=== PATIENT | female | born 1970 | race Caucasian/White ===

== ENCOUNTER 2016-12-04 09:30 | Emergency (ER) | payer BC ==
[2016-12-04] MEDS ORDERED: Ketorolac 30 MG/ML SDV IVPUSH ONE (09:44)
[2016-12-04] MEDS ORDERED: Diazepam 5 MG Tab PO ONE (09:44)
--- NOTE | 2016-12-04 09:46 | EDM.PDOC ---
ED HPI LOWER BACK PAIN/INJURY - General Chief Complaint: Back Pain or Injury Stated Complaint: AMBULANCE Time Seen by Provider: 12/04/16 09:37 Source of Information: Reports: Patient History Limitations: Reports: No limitations - History of Present Illness INITIAL COMMENTS - FREE TEXT/NARRATIVE: History of present illness: [] Patient slipped in the shower hit her low back edge of the bathtub this morning is brought in by ambulance planning of low back pain with spasms radiating down her left hip. She denies any numbness or tingling, urinary or fecal incontinence. Review of systems: As per history of present illness and below otherwise all systems reviewed and negative. Past medical history: As per history of present illness and as reviewed below otherwise noncontributory. Surgical history: As per history of present illness and as reviewed below otherwise noncontributory. Social history: No reported history of drug or alcohol abuse. Family history: As per history of present illness and as reviewed below otherwise noncontributory. Physical exam: General: Well developed, well nourished in NAD HEENT: Atraumatic, normocephalic, pupils reactive, negative for conjunctival pallor or scleral icterus, mucous membranes moist, throat clear, neck supple, nontender, trachea midline. Lungs: Clear to auscultation, breath sounds equal bilaterally, chest nontender. Heart: S1S2, regular, negative for clicks, rubs, or JVD. Abdomen: Soft, nondistended, nontender. Negative for masses or hepatosplenomegaly. Negative for costovertebral tenderness. Pelvis: Stable nontender. Genitourinary: Deferred. Rectal: Deferred. Extremities: Atraumatic, negative for cords or calf pain. Neurovascular unremarkable. Neuro: Awake, alert, oriented. Cranial nerves II through XII unremarkable. Cerebellum unremarkable. Motor and sensory unremarkable throughout. Exam nonfocal. Diagnostics: [] X-rays lumbar spine negative for fracture compared to films and 2010 or unchanged Therapeutics: [] Valium and Toradol given for pain she received Fentanyl and ambulance prior to arrival Impression: [] Low back contusion Plan: [] Flexeril, diclofenac for pain Definitive disposition and diagnosis as appropriate pending reevaluation and review of above. - Related Data Allergies/ADRs: Allergies Allergy/AdvReac Type Severity Reaction Status Date / Time clarithromycin [From Biaxin] Allergy Difficulty Verified 12/04/16 09:38 Breathing morphine Allergy Rash Verified 12/04/16 09:38 Home Meds: Home Meds LORazepam 1 - 2 tab PO BID PRN 01/02/15 [History] Methotrexate Sodium [Methotrexate] 2.5 mg PO WEEKLY 11/06/16 [History] Ziprasidone HCl [Geodon] 20 mg PO BID 11/06/16 [History] lamoTRIgine [Lamictal] 200 mg PO DAILY 11/06/16 [History] traZODone 100 mg PO BEDTIME 11/06/16 [History] Cyclobenzaprine [Flexeril] 10 mg PO BID PRN #16 tablet 12/04/16 [Rx] Diclofenac Sodium [Voltaren] 50 mg PO BIDMEALS PRN #20 tab.ec 12/04/16 [Rx] Past Medical History Cardiovascular History: Reports: None Respiratory History: Reports: None Musculoskeletal History: Reports: Osteoporosis, RA Psychiatric History: Reports: Bipolar - Past Surgical History GI Surgical History: Reports: Appendectomy, Cholecystectomy Female Surgical History: Reports: section, Hysterectomy Social & Family History - Tobacco Use Smoking Status *Q: Never Smoker Second Hand Smoke Exposure: No - Caffeine Use Caffeine Use: Reports: None - Alcohol Use Days Per Week of Alcohol Use: 0 - Recreational Drug Use Recreational Drug Use: No ED ROS GENERAL - Review of Systems Review Of Systems: See Below (See history of present illness) ED EXAM,LOWER BACK PAIN/INJURY - Physical Exam Exam: See Below (see history of present illness) Course - Vital Signs Last Recorded V/S: Last Vital Signs Temp 36.9 C 12/04/16 09:39 Pulse 68 12/04/16 09:39 Resp 16 12/04/16 09:39 BP 119/69 12/04/16 09:39 Pulse Ox 100 12/04/16 09:39 - Orders/Labs/Meds Orders: Active Orders 24 hr Category Date Time Status Lumbar Spine 2 or 3V [CR] Stat Exams 12/04/16 09:45 Taken UA W/O MICROSCOPIC [URIN] Stat Lab 12/04/16 09:45 Uncollected Meds: Medications Discontinued Medications Generic Name Dose Route Start Last Admin Trade Name Freq PRN Reason Stop Dose Admin Diazepam 5 mg 12/04/16 09:44 12/04/16 09:54 Valium. PO 12/04/16 09:45 5 mg ONETIME ONE Administration Ketorolac Tromethamine 30 mg 12/04/16 09:44 12/04/16 09:53 Toradol IVPUSH 12/04/16 09:45 30 mg ONETIME ONE Administration Departure - Departure Time of Disposition: 11:00 Disposition: Home, Self-Care 01 Condition: good Clinical Impression: Lumbar contusion Qualifiers: Encounter type: initial encounter Qualified Code(s): S30.0XXA - Contusion of lower back and pelvis, initial encounter Forms: ED Department Discharge Additional Instructions: The following information is given to patients seen in the emergency department who are being discharged to home. This information is to outline your options for follow-up care. We provide all patients seen in our emergency department with a follow-up referral. The need for follow-up, as well as the timing and circumstances, are variable depending upon the specifics of your emergency department visit. If you don't have a primary care physician on staff, we will provide you with a referral. We always advise you to contact your personal physician following an emergency department visit to inform them of the circumstance of the visit and for follow-up with them and/or the need for any referrals to a consulting specialist. The emergency department will also refer you to a specialist when appropriate. This referral assures that you have the opportunity for follow-up care with a specialist. All of these measure are taken in an effort to provide you with optimal care, which includes your follow-up. Under all circumstances we always encourage you to contact your private physician who remains a resource for coordinating your care. When calling for follow-up care, please make the office aware that this follow-up is from your recent emergency room visit. If for any reason you are refused follow-up, please contact the [facility] Emergency Department at and asked to speak to the emergency department charge nurse. Tramadol, Flexeril for pain [facility] [address] [place] [id number] - My Orders Last 24 Hours: My Active Orders 12/04/16 09:45 Lumbar Spine 2 or 3V [CR] Stat UA W/O MICROSCOPIC [URIN] Stat - Assessment/Plan Last 24 Hours: My Active Orders 12/04/16 09:45 Lumbar Spine 2 or 3V [CR] Stat UA W/O MICROSCOPIC [URIN] Stat
[2016-12-04 11:25] VITALS: BP 132/77
--- NOTE | 2016-12-04 15:59 | CR ---
EXAM DATE: 12/04/16 PATIENT'S AGE: 46 Patient: RAMIRO LARKIN Facility: [place], [place] Site . Site : 1970 Study: XRay Spine Lumbar [id number]/8/2017 10:22:24 AM Ordering Physician: Arnoldo Ross Final Report: Indication: Fell this morning, back and left leg pain. History laminectomy at approximately L4. Technique: Three view lumbar spine. Comparison: 04/23/2010. Findings: Five lumbar-type vertebra are present. Laminectomy changes are present at L4-5. No acute fracture is demonstrated in the lumbar spine. Vertebral body height is maintained. There is an old Schmorl`s node involving the superior vertebral body endplate of T12 which does not appear changed. Disc space narrowing at L4- 5 and L5-S1 is not significantly changed.Mild disc space narrowing at L3-4 is stable. Tiny anterior vertebral body spurs at L5-S1 are stable. There is no subluxation in the lumbar spine.Scoliosis convex towards the right is less conspicuous. Pelvic surgical clips are present. Alignment of sacroiliac joints is normal. Impression: There are no acute bony abnormalities in the lumbar spine. Chronic disc space narrowing is not significantly changed since 04/23/2010. There is no subluxation in the visualized spine. Dictated by Maryuri Nathan MD @ Dec 04 2016 10:28AM (Electronic Signature) Report Signed by Proxy and Original Signed Document filed in the Medical Record. BENNIE
--- NOTE | 2016-12-05 15:39 | CT ---
EXAM DATE: 12/04/16 PATIENT'S AGE: 46 Patient: RAMIRO LARKIN Facility: [place], [place] Site . Site : 1970 Study: CT Head [id number]/8/2017 11:17:49 PM Ordering Physician: Deion Pham Final Report: INDICATIONS: Unresponsive. Question overdose. TECHNIQUE: CT head without contrast. COMPARISON: CT head without contrast November 06, 2016. FINDINGS: Motion. No mass effect or midline shift. No hydrocephalus. No CT evidence of acute hemorrhage or infarction. No abnormal extra-axial fluid collection. Bone windows show no acute abnormality. Paranasal sinuses and orbits as imaged are unremarkable. IMPRESSION: No acute intracranial abnormality. Please note that image quality is degraded by motion. Dictated by Jose Cruz Gonsalez MD @ 12/04/2016 11:26:45 PM Dictated by: Jose Cruz Gonsalez MD @ 12/04/2016 23:27:01 (Electronic Signature) Report Signed by Proxy and Original Signed Document filed in the Medical Record. [facility]
--- NOTE | 2016-12-05 15:40 | CR ---
EXAM DATE: 12/04/16 PATIENT'S AGE: 46 Patient: RAMIRO LARKIN Facility: [place], [place] Site . Site : 1970 Study: XRay Chest [id number]/8/2017 11:21:48 PM Ordering Physician: Deion Pham Final Report: INDICATIONS: Altered mental status. TECHNIQUE: Chest 1 view. COMPARISON: None FINDINGS: Lungs are suboptimally inflated but grossly clear. No evidence of pneumothorax or pleural effusion. Cardiac and mediastinal contours appear within normal limits. Upper abdomen and osseous structures show no acute abnormality. IMPRESSION: Unremarkable low volume chest. Dictated by Jose Cruz Gonsalez MD @ 12/04/2016 11:31:02 PM Dictated by: Jose Cruz Gonsalez MD @ 12/04/2016 23:31:13 (Electronic Signature) Report Signed by Proxy and Original Signed Document filed in the Medical Record. [facility]
== END 2016-12-04 11:15 | disposition home or self-care (01) ==
LOC: MW.ED 09:30
DX: S30.0XXA Contusion of lower back and pelvis, initial encounter (principal); M81.0 Age-related osteoporosis without current pathological fracture; M06.9 Rheumatoid arthritis, unspecified; F31.9 Bipolar disorder, unspecified; Z90.49 Acquired absence of other specified parts of digestive tract; Z90.710 Acquired absence of both cervix and uterus; Z79.899 Other long term (current) drug therapy; Z88.5 Allergy status to narcotic agent; Z88.1 Allergy status to other antibiotic agents; W18.49XA Other slipping, tripping and stumbling without falling, initial encounter
CPT/HCPCS: 70450; 71010; 72100; 81003; 96374; 99284; A9270; J1885

== ENCOUNTER 2016-12-04 22:32 | Observation (INO) | payer BC ==
[2016-12-04] MEDS ORDERED: Naloxone 0.4 MG/ML Syringe IVPUSH ONE (22:37)
--- NOTE | 2016-12-04 22:41 | EDM.PDOC ---
ED HPI GENERAL MEDICAL PROBLEM - General Chief Complaint: Neurological Problem Stated Complaint: SUICIDE Time Seen by Provider: 12/04/16 22:35 - History of Present Illness INITIAL COMMENTS - FREE TEXT/NARRATIVE: HISTORY AND PHYSICAL: History of present illness: This 46-year-old female who presents after being found by her daughter and unresponsive she was seen earlier emergent [facility] for back pain and was discharged on muscle relaxant and pain medication it is reported she had been drinking tonight and was behaving somewhat unusually her daughter police were involved one with paramedics and did find a suicide note. There is no other reported trauma or concern and on arrival patient is awake breeding hemodynamically stable but profoundly somnolent eyes closed moving all extremities and inconsistently following commands Review of systems: As per history of present illness and below otherwise all systems reviewed and negative. Past medical history: As per history of present illness and as reviewed below otherwise noncontributory. Surgical history: As per history of present illness and as reviewed below otherwise noncontributory. Social history: No reported history of drug or alcohol abuse. Family history: As per history of present illness and as reviewed below otherwise noncontributory. Physical exam: HEENT: Atraumatic, normocephalic, pupils reactive, negative for conjunctival pallor or scleral icterus, mucous membranes moist, throat clear, neck supple, nontender, trachea midline. Lungs: Clear to auscultation, breath sounds equal bilaterally, chest nontender. Heart: S1S2, regular, negative for clicks, rubs, or JVD. Abdomen: Soft, nondistended, nontender. Negative for masses or hepatosplenomegaly. Negative for costovertebral tenderness. Pelvis: Stable nontender. Genitourinary: Deferred. Rectal: Deferred. Extremities: Atraumatic, negative for cords or calf pain. Neurovascular unremarkable. Neuro: Patient is moving all extremities she responds to painful stimuli does not follow commands consistently and has limited grossly nonfocal exam Diagnostics: CBC CMP troponin PT INR aspirin level Tylenol level urine drug screen EtOH chest x-ray EKG and CT brain Therapeutics: IV O2 monitor Narcan 0.4 mg IV Impression: #1 suicide attempt with overdose Definitive disposition and diagnosis as appropriate pending reevaluation and review of above. - Related Data Allergies Allergy/AdvReac Type Severity Reaction Status Date / Time clarithromycin [From Biaxin] Allergy Difficulty Verified 12/04/16 09:38 Breathing morphine Allergy Rash Verified 12/04/16 09:38 Home Meds: Home Meds LORazepam 1 - 2 tab PO BID PRN 01/02/15 [History] Methotrexate Sodium [Methotrexate] 2.5 mg PO WEEKLY 11/06/16 [History] Ziprasidone HCl [Geodon] 20 mg PO BID 11/06/16 [History] lamoTRIgine [Lamictal] 200 mg PO DAILY 11/06/16 [History] traZODone 100 mg PO BEDTIME 11/06/16 [History] Cyclobenzaprine [Flexeril] 10 mg PO BID PRN #16 tablet 12/04/16 [Rx] Diclofenac Sodium [Voltaren] 50 mg PO BIDMEALS PRN #20 tab.ec 12/04/16 [Rx] Past Medical History HEENT History: Reports: Sinusitis Cardiovascular History: Reports: None Respiratory History: Reports: None Gastrointestinal History: Reports: None Genitourinary History: Reports: None [employer] History: Reports: None Musculoskeletal History: Reports: Osteoporosis, RA Neurological History: Reports: None Psychiatric History: Reports: Bipolar Endocrine/Metabolic History: Reports: Obesity/BMI 30+, Osteopenia Hematologic History: Reports: None Immunologic History: Reports: None Oncologic (Cancer) History: Reports: None Dermatologic History: Reports: None - Infectious Disease History Infectious Disease History: Reports: Chicken pox - Past Surgical History GI Surgical History: Reports: Appendectomy, Cholecystectomy Female Surgical History: Reports: section, Hysterectomy Social & Family History - Family History Family Medical History: Noncontributory - Tobacco Use Smoking Status *Q: Never Smoker Years of Tobacco use: 15 Second Hand Smoke Exposure: No - Caffeine Use Caffeine Use: Reports: None - Alcohol Use Days Per Week of Alcohol Use: 0 - Recreational Drug Use Recreational Drug Use: No ED ROS GENERAL - Review of Systems Review Of Systems: ROS reveals no pertinent complaints other than HPI. ED EXAM, GENERAL - Physical Exam Exam: See Below (See dictation) Course - Vital Signs Last Recorded V/S: Last Vital Signs Temp 36.6 C 12/04/16 22:35 Pulse 121 H 12/04/16 22:35 Resp 16 12/04/16 22:35 BP 141/98 H 12/04/16 22:35 Pulse Ox 93 L 12/04/16 22:35 - Orders/Labs/Meds Orders: Active Orders 24 hr Category Date Time Status EKG 12 Lead [EKG Documentation Completion] [RC] STAT Care 12/04/16 22:38 Active Chest 1V Frontal [CR] Stat Exams 12/04/16 22:39 Taken Head wo Cont [CT] Stat Exams 12/04/16 22:41 Taken Labs: Laboratory Tests 12/04/16 12/04/16 12/04/16 Range/Units 22:40 22:40 22:40 WBC 5.86 (4.0-11.0) K/uL RBC 4.72 (4.30-5.90) M/uL Hgb 14.4 (12.0-16.0) g/dL Hct 41.0 (36.0-46.0) % MCV 86.9 (80.0-98.0) fL MCH 30.5 (27.0-32.0) pg MCHC 35.1 (31.0-37.0) g/dL RDW Std Deviation 42.8 (28.0-62.0) fl RDW Coeff of Abdiel 14 (11.0-15.0) % Plt Count 271 (150-400) K/uL MPV 9.20 (7.40-12.00) fL Neut % (Auto) 66.8 (48.0-80.0) % Lymph % (Auto) 27.5 (16.0-40.0) % Duchesne % (Auto) 3.9 (0.0-15.0) % Eos % (Auto) 1.5 (0.0-7.0) % Baso % (Auto) 0.3 (0.0-1.5) % Neut # 3.9 (1.4-5.7) K/uL Lymph # 1.6 (0.6-2.4) K/uL Duchesne # 0.2 (0.0-0.8) K/uL Eos # 0.1 (0.0-0.7) K/uL Baso # 0.0 (0.0-0.1) K/uL Nucleated RBC % 0.0 /100WBC Nucleated RBCs # 0 K/uL INR (0.86-1.11) Sodium 140 (136-146) mmol/L Potassium 4.1 (3.5-5.1) mmol/L Chloride 107 (98-110) mmol/L Carbon Dioxide 20 L (21-31) mmol/L BUN 8 (6.0-23.0) mg/dL Creatinine 0.9 (0.6-1.5) mg/dL Est Cr Clr Drug Dosing TNP Estimated GFR (MDRD) > 60.0 ml/min Glucose 164 H (60-110) mg/dL Calcium 8.8 (8.8-10.8) mg/dL Total Bilirubin 0.5 (0.1-1.5) mg/dL AST 57 H (5-40) IU/L ALT 130 H (8-54) IU/L Alkaline Phosphatase 37 L (40-150) CK-MB (CK-2) 0.7 (0-6.6) ng/ml Troponin I < 0.10 (0.0-0.29) NG/ML Total Protein 7.4 (6.0-8.0) g/dL Albumin 4.3 (3.5-5.0) g/dL Globulin 3.1 (2.0-3.5) g/dL Albumin/Globulin Ratio 1.4 (1.3-2.8) Urine HCG, Qual (NEGATIVE) Salicylates < 5.0 (0-20) mg/dL Urine Opiates Screen (NEGATIVE) Ur Oxycodone Screen (NEGATIVE) Urine Methadone Screen (NEGATIVE) Acetaminophen < 3.0 ug/mL Ur Barbiturates Screen (NEGATIVE) Ur Phencyclidine Scrn (NEGATIVE) Ur Amphetamine Screen (NEGATIVE) U Methamphetamines Scrn (NEGATIVE) U Benzodiazepines Scrn (NEGATIVE) U Cocaine Metab Screen (NEGATIVE) U Marijuana (THC) Screen (NEGATIVE) Ethyl Alcohol 56.0 mg/dL 12/04/16 12/04/16 12/04/16 Range/Units 22:40 23:20 23:20 WBC (4.0-11.0) K/uL RBC (4.30-5.90) M/uL Hgb (12.0-16.0) g/dL Hct (36.0-46.0) % MCV (80.0-98.0) fL MCH (27.0-32.0) pg MCHC (31.0-37.0) g/dL RDW Std Deviation (28.0-62.0) fl RDW Coeff of Abdiel (11.0-15.0) % Plt Count (150-400) K/uL MPV (7.40-12.00) fL Neut % (Auto) (48.0-80.0) % Lymph % (Auto) (16.0-40.0) % Duchesne % (Auto) (0.0-15.0) % Eos % (Auto) (0.0-7.0) % Baso % (Auto) (0.0-1.5) % Neut # (1.4-5.7) K/uL Lymph # (0.6-2.4) K/uL Duchesne # (0.0-0.8) K/uL Eos # (0.0-0.7) K/uL Baso # (0.0-0.1) K/uL Nucleated RBC % /100WBC Nucleated RBCs # K/uL INR 1.04 (0.86-1.11) Sodium (136-146) mmol/L Potassium (3.5-5.1) mmol/L Chloride (98-110) mmol/L Carbon Dioxide (21-31) mmol/L BUN (6.0-23.0) mg/dL Creatinine (0.6-1.5) mg/dL Est Cr Clr Drug Dosing Estimated GFR (MDRD) ml/min Glucose (60-110) mg/dL Calcium (8.8-10.8) mg/dL Total Bilirubin (0.1-1.5) mg/dL AST (5-40) IU/L ALT (8-54) IU/L Alkaline Phosphatase (40-150) CK-MB (CK-2) (0-6.6) ng/ml Troponin I (0.0-0.29) NG/ML Total Protein (6.0-8.0) g/dL Albumin (3.5-5.0) g/dL Globulin (2.0-3.5) g/dL Albumin/Globulin Ratio (1.3-2.8) Urine HCG, Qual NEGATIVE (NEGATIVE) Salicylates (0-20) mg/dL Urine Opiates Screen NEGATIVE (NEGATIVE) Ur Oxycodone Screen NEGATIVE (NEGATIVE) Urine Methadone Screen NEGATIVE (NEGATIVE) Acetaminophen ug/mL Ur Barbiturates Screen NEGATIVE (NEGATIVE) Ur Phencyclidine Scrn NEGATIVE (NEGATIVE) Ur Amphetamine Screen NEGATIVE (NEGATIVE) U Methamphetamines Scrn NEGATIVE (NEGATIVE) U Benzodiazepines Scrn NEGATIVE (NEGATIVE) U Cocaine Metab Screen NEGATIVE (NEGATIVE) U Marijuana (THC) Screen NEGATIVE (NEGATIVE) Ethyl Alcohol mg/dL Meds: Medications Discontinued Medications Generic Name Dose Route Start Last Admin Trade Name Freq PRN Reason Stop Dose Admin Naloxone HCl 0.4 mg 12/04/16 22:37 12/04/16 22:47 Narcan IVPUSH 12/04/16 22:38 0.4 mg ONETIME ONE Administration Departure - Departure Time of Disposition: 23:52 Disposition: Admitted As Inpatient 66 Condition: good Clinical Impression: Overdose, Altered mental status Referrals: PCP,None [Primary Care Provider] - Forms: ED Department Discharge - My Orders Last 24 Hours: My Active Orders 12/04/16 22:38 EKG 12 Lead [EKG Documentation Completion] [RC] STAT 12/04/16 22:39 Chest 1V Frontal [CR] Stat 12/04/16 22:41 Head wo Cont [CT] Stat - Assessment/Plan Last 24 Hours: My Active Orders 12/04/16 22:38 EKG 12 Lead [EKG Documentation Completion] [RC] STAT 12/04/16 22:39 Chest 1V Frontal [CR] Stat 12/04/16 22:41 Head wo Cont [CT] Stat
[2016-12-04 23:15] LABS: CHLORIDE,CL 107 mmol/L (98-110); SODIUM,NA 140 mmol/L (136-146)
[2016-12-04 23:20] LABS: ACETAMINOPHEN < 3.0 ug/mL
[2016-12-04] MEDS ORDERED: LORazepam 2 MG/ML MDV IVPUSH ONE (23:59)
[2016-12-05] MEDS ORDERED: Albuterol/Ipratropium 3.0-0.5 MG/3 ML Neb Soln NEB PRN (01:39)
[2016-12-05] MEDS ORDERED: Sodium Chloride 0.9% 10 ML Syringe FLUSH PRN (01:39)
[2016-12-05] MEDS ORDERED: Sodium Chloride 0.9% 2.5 ML Syringe FLUSH PRN (01:39)
[2016-12-05] MEDS ORDERED: LORazepam 1 MG Tab PO PRN (01:46)
[2016-12-05] MEDS: Sodium Chloride 0.9% 1,000 ML IV SCH ×2 (02:28→10:02)
[2016-12-05] MEDS ORDERED: Pantoprazole 40 MG in Sodium Chloride 0.9% 10 ML IVPUSH ONE (03:08)
[2016-12-05 05:57] LABS: CHLORIDE,CL 111 mmol/L (98-110); SODIUM,NA 140 mmol/L (136-146)
--- NOTE | 2016-12-05 11:17 | PCM.SN ---
- Free Text/Narrative Note: Patient with hx of bipolar disorder attempted suicide with we assume Carisoprodol 350 mg tabs and diclofenac. This were the medication were found empty bottle.
[2016-12-05 12:02] VITALS: BP 103/57
--- NOTE | 2016-12-05 16:38 | CT ---
EXAM DATE: 12/04/16 PATIENT'S AGE: 46 Patient: RAMIRO LARKIN Facility: [place], [place] Site . Site : 1970 Study: CT Head [id number]/9/2017 10:52:10 AM Ordering Physician: Barbie Ocampo Final Report: HISTORY: Altered mental status. Technique: CT brain without contrast. Comparison: CT brain 12/04/2016. Findings: No acute intracranial hemorrhage. No extra-axial collection. No mass effect or midline shift. Brain parenchyma is within normal limits for age. The ventricular system is normal in caliber and morphology. Cisterns are patent. Calvarium is intact. Remote appearing nasal bone fracture. Paranasal sinuses and mastoid air cells are clear. Orbits and extracranial soft tissues are unremarkable. Impression: No acute intracranial findings. Dictated by Emmanuel Banuelos MD @ Dec 05 2016 10:56AM (Electronic Signature) Report Signed by Proxy and Original Signed Document filed in the Medical Record. MTDD
--- NOTE | 2016-12-05 17:42 | PCM.HP ---
H&P History of Present Illness - General Date of Service: 12/05/16 Admit Problem/Dx: Admission Diagnosis/Problem Admission Diagnosis/Problem Drug overdose Source of Information: Family History Limitations: Reports: Altered mental status, Intoxication - History of Present Illness Initial Comments - Free Text/Narative: I have come to see patient 1: 35 am . Labs were reviewed and abg , Vs nl.Ct head negative. Patient 46 y old female with Hx of osteogenesa imperfecta, Bipolar disorder , Hx of suicide attempt 14 y ago presented to hospital because she was found around 9:30 pm unconscious lying on the floor with streaks of blood coming from her left nostril. EMS was called and patient was found to have around her a bottle of carisoprodol and diclofenac that were empty .All other bottles that were around her were full with medications. Patient works as a accountant property and her bipolar was stable as per family . She from her few months ago . She fell in the shower and had a bruise on her back , was seen in ER in am and was discharged home. Patient did not open eyes at all until 2:30 am when she opened her eyes when i called her name . She has involuntary movements with her limbs. She took her medications with alcohol , but her and daughter says she is not drinking alcohol usually. Patient left a suicidal good bye note to her son 23 y old and her daughter and to her ex , stating she feels sorry she was not able to do more to make them happy and that she loves them. Duration of Symptoms: Reports: Hour(s): - Related Data Allergies/Adverse Reactions: Allergies Allergy/AdvReac Type Severity Reaction Status Date / Time clarithromycin [From Biaxin] Allergy Difficulty Verified 12/04/16 09:38 Breathing morphine Allergy Rash Verified 12/04/16 09:38 Home Medications: Home Meds Ziprasidone HCl [Geodon] 20 mg PO BID 11/06/16 [History] lamoTRIgine [Lamictal] 200 mg PO BEDTIME 11/06/16 [History] traZODone 100 mg PO BEDTIME 11/06/16 [History] Cyclobenzaprine [Flexeril] 10 mg PO BID PRN #16 tablet 12/04/16 [Rx] Diclofenac Sodium [Voltaren] 50 mg PO BIDMEALS PRN #20 tab.ec 12/04/16 [Rx] Hydroxychloroquine [Plaquenil] 200 mg PO BID 12/05/16 [History] LORazepam 1 mg PO BID PRN 12/05/16 [History] Methotrexate Sodium/PF [Methotrexate 50 mg/2 ml Vial] 8 ml INJECT WEEKLY [History] Prednisone [IMW: predniSONE] 20 mg PO WEEKLY 12/05/16 [History] Past Medical History HEENT History: Reports: Sinusitis Cardiovascular History: Reports: None Respiratory History: Reports: None Gastrointestinal History: Reports: None Genitourinary History: Reports: None GALLERY OR MUSEUM ATTENDANT History: Reports: None Musculoskeletal History: Reports: Osteoporosis, RA Neurological History: Reports: None Psychiatric History: Reports: Anxiety, Bipolar, Depression Endocrine/Metabolic History: Reports: Obesity/BMI 30+, Osteopenia Hematologic History: Reports: None Immunologic History: Reports: None Oncologic (Cancer) History: Reports: None Dermatologic History: Reports: None - Infectious Disease History Infectious Disease History: Reports: Chicken pox - Past Surgical History Head Surgeries/Procedures: Reports: None GI Surgical History: Reports: Appendectomy, Cholecystectomy Female Surgical History: Reports: section, Hysterectomy Social & Family History - Family History Family Medical History: Noncontributory - Tobacco Use Smoking Status *Q: Former Smoker Years of Tobacco use: 15 Month Tobacco Last Used: 15 years ago she quit Second Hand Smoke Exposure: No - Caffeine Use Caffeine Use: Reports: None - Alcohol Use Days Per Week of Alcohol Use: 0 - Recreational Drug Use Recreational Drug Use: No H&P Review of Systems - Review of Systems: Review Of Systems: Unable To Obtain Exam - Exam Exam: See Below - Vital Signs Vital Signs: Last Vital Signs Temp 97.7 F 12/05/16 11:50 Pulse 118 H 12/05/16 00:24 Resp 21 H 12/05/16 11:50 BP 103/57 L 12/05/16 11:50 Pulse Ox 95 12/05/16 11:50 Weight: 201 lb 15.095 oz - Exam General: obtunded HEENT: Conjunctiva clear, Nares patent, Normal nasal septum, Other (streaks of dry blood left nostril) Neck: supple, trachea midline Lungs: Clear to auscultation, Normal respiratory effort Cardiovascular: regular rate, regular rhythm, normal S1, normal S2 Abdomen: distention, hypoactive bowel sounds Back Exam: other (there is bruising on the lower back ) Extremities: normal inspection Skin: ecchymosis Neurological: other (amy has involuntary movements of her limbs ( all) ample movements. ) - Patient Data Lab Results last 24 hrs: Laboratory Results - last 24 hr 12/05/16 12/05/16 12/05/16 Range/Units 01:52 05:28 05:28 WBC 7.74 (4.0-11.0) K/uL RBC 4.59 (4.30-5.90) M/uL Hgb 13.7 (12.0-16.0) g/dL Hct 39.9 (36.0-46.0) % MCV 86.9 (80.0-98.0) fL MCH 29.8 (27.0-32.0) pg MCHC 34.3 (31.0-37.0) g/dL RDW Std Deviation 43.3 (28.0-62.0) fl RDW Coeff of Abdiel 14 (11.0-15.0) % Plt Count 283 (150-400) K/uL MPV 9.20 (7.40-12.00) fL Neut % (Auto) 88.3 H (48.0-80.0) % Lymph % (Auto) 9.6 L (16.0-40.0) % [place] % (Auto) 1.9 (0.0-15.0) % Eos % (Auto) 0.1 (0.0-7.0) % Baso % (Auto) 0.1 (0.0-1.5) % Neut # 6.8 H (1.4-5.7) K/uL Lymph # 0.7 (0.6-2.4) K/uL [place] # 0.2 (0.0-0.8) K/uL Eos # 0.0 (0.0-0.7) K/uL Baso # 0.0 (0.0-0.1) K/uL Nucleated RBC % 0.0 /100WBC Nucleated RBCs # 0 K/uL INR (0.86-1.11) ABG pH 7.439 (7.35-7.45) ABG pCO2 31 L (35-45) mmHG ABG pO2 75 (75-100) mmHG ABG HCO3 21 L (22-26) mEq/L ABG Total CO2 18.3 ABG Base Excess -2.9 L (-2.0-2.0) Sodium 140 (136-146) mmol/L Potassium 4.6 (3.5-5.1) mmol/L Chloride 111 H (98-110) mmol/L Carbon Dioxide 19 L (21-31) mmol/L BUN 10 (6.0-23.0) mg/dL Creatinine 0.8 (0.6-1.5) mg/dL Est Cr Clr Drug Dosing 75.88 mL/min Estimated GFR (MDRD) > 60.0 ml/min Glucose 143 H (60-110) mg/dL Calcium 8.9 (8.8-10.8) mg/dL Total Bilirubin 0.7 (0.1-1.5) mg/dL AST 43 H (5-40) IU/L ALT 118 H (8-54) IU/L Alkaline Phosphatase 35 L (40-150) Total Protein 6.9 (6.0-8.0) g/dL Albumin 4.2 (3.5-5.0) g/dL Globulin 2.7 (2.0-3.5) g/dL Albumin/Globulin Ratio 1.6 (1.3-2.8) Urine Color Urine Appearance Urine pH (5.0-8.0) Ur Specific [place] (1.001-1.035) Urine Protein (NEGATIVE) mg/dL Urine Glucose (UA) (NEGATIVE) mg/dL Urine Ketones (NEGATIVE) mg/dL Urine Occult Blood (NEGATIVE) Urine Nitrite (NEGATIVE) Urine Bilirubin (NEGATIVE) Urine Urobilinogen (<2.0) EU/dL Ur Leukocyte Esterase (NEGATIVE) Urine RBC (0-2/HPF) Urine WBC (0-5/HPF) Ur Epithelial Cells (NONE-FEW) Urine Bacteria (NEGATIVE) Urine Mucus (NONE-MOD) 12/05/16 12/05/16 12/05/16 Range/Units 09:45 09:55 11:09 WBC (4.0-11.0) K/uL RBC (4.30-5.90) M/uL Hgb (12.0-16.0) g/dL Hct (36.0-46.0) % MCV (80.0-98.0) fL MCH (27.0-32.0) pg MCHC (31.0-37.0) g/dL RDW Std Deviation (28.0-62.0) fl RDW Coeff of Abdiel (11.0-15.0) % Plt Count (150-400) K/uL MPV (7.40-12.00) fL Neut % (Auto) (48.0-80.0) % Lymph % (Auto) (16.0-40.0) % [place] % (Auto) (0.0-15.0) % Eos % (Auto) (0.0-7.0) % Baso % (Auto) (0.0-1.5) % Neut # (1.4-5.7) K/uL Lymph # (0.6-2.4) K/uL [place] # (0.0-0.8) K/uL Eos # (0.0-0.7) K/uL Baso # (0.0-0.1) K/uL Nucleated RBC % /100WBC Nucleated RBCs # K/uL INR 1.06 (0.86-1.11) ABG pH 7.408 (7.35-7.45) ABG pCO2 32 L (35-45) mmHG ABG pO2 69 L (75-100) mmHG ABG HCO3 20 L (22-26) mEq/L ABG Total CO2 18.3 ABG Base Excess -3.7 L (-2.0-2.0) Sodium (136-146) mmol/L Potassium (3.5-5.1) mmol/L Chloride (98-110) mmol/L Carbon Dioxide (21-31) mmol/L BUN (6.0-23.0) mg/dL Creatinine (0.6-1.5) mg/dL Est Cr Clr Drug Dosing mL/min Estimated GFR (MDRD) ml/min Glucose (60-110) mg/dL Calcium (8.8-10.8) mg/dL Total Bilirubin (0.1-1.5) mg/dL AST (5-40) IU/L ALT (8-54) IU/L Alkaline Phosphatase (40-150) Total Protein (6.0-8.0) g/dL Albumin (3.5-5.0) g/dL Globulin (2.0-3.5) g/dL Albumin/Globulin Ratio (1.3-2.8) Urine Color YELLOW Urine Appearance CLEAR Urine pH 6.0 (5.0-8.0) Ur Specific [place] >= 1.030 (1.001-1.035) Urine Protein NEGATIVE (NEGATIVE) mg/dL Urine Glucose (UA) NEGATIVE (NEGATIVE) mg/dL Urine Ketones NEGATIVE (NEGATIVE) mg/dL Urine Occult Blood MODERATE (NEGATIVE) Urine Nitrite NEGATIVE (NEGATIVE) Urine Bilirubin NEGATIVE (NEGATIVE) Urine Urobilinogen 0.2 (<2.0) EU/dL Ur Leukocyte Esterase NEGATIVE (NEGATIVE) Urine RBC 6-8 (0-2/HPF) Urine WBC 0-1 (0-5/HPF) Ur Epithelial Cells OCCASIONAL (NONE-FEW) Urine Bacteria FEW (NEGATIVE) Urine Mucus MODERATE (NONE-MOD) Result Diagrams: 12/05/16 05:28 12/05/16 05:28 EKG INTERPRETATION EKG Date: 12/04/16 Rhythm: NSR QRS: normal QT: prolonged *Q Meaningful Use (ADM) - VTE *Q VTE Criteria *Q: - Stroke *Q Stroke Criteria *Q: - AMI *Q AMI Criteria *Q: - Problem List (1) Suicide attempt SNOMED Code(s): 11740979 ICD Code: T14.91 - SUICIDE ATTEMPT Status: Acute (2) Altered mental status SNOMED Code(s): 114942604 ICD Code: R41.82 - ALTERED MENTAL STATUS, UNSPECIFIED Status: Acute (3) Lumbar contusion SNOMED Code(s): 280333866 ICD Code: S30.0XXA - CONTUSION OF LOWER BACK AND PELVIS, INITIAL ENCOUNTER Status: Acute Qualifiers: Encounter type: initial encounter Qualified Code(s): S30.0XXA - Contusion of lower back and pelvis, initial encounter (4) Overdose SNOMED Code(s): 48937237 ICD Code: T50.901A - POISONING BY UNSP DRUG/MEDS/BIOL SUBST, ACCIDENTAL, INIT Status: Acute (5) Bipolar affective, depress, unspec SNOMED Code(s): 746592824 ICD Code: F31.30 - BIPOLAR DISORD, CRNT EPSD DEPRESS, MILD OR MOD SEVERT, UNSP Status: Acute (6) Rheumatoid arthritis SNOMED Code(s): 41015738 ICD Code: M06.9 - RHEUMATOID ARTHRITIS, UNSPECIFIED Status: Acute Problem List Initiated/Reviewed/Updated: Yes Orders Last 24hrs: Active Orders 24 hr Category Date Time Status Patient Status [ADT] Routine ADT 12/05/16 01:39 Active Antiembolic Devices [RC] Q12H Care 12/05/16 01:44 Active Communication Order [RC] ROUTINE Care 12/05/16 02:00 Active Cordero Catheter Insertion [Insert Urinary Catheter] [OM. Care 12/05/16 09:30 Ordered PC] Q24H Neuro Check [RC] Q2HR Care 12/05/16 01:45 Active Oxygen Therapy [RC] PRN Care 12/05/16 01:39 Active Pulse Oximetry [RC] PRN Care 12/05/16 01:43 Active RT Aerosol Therapy [RC] ASDIRECTED Care 12/05/16 01:44 Active Ready for Discharge [RC] PER UNIT ROUTINE Care 12/05/16 11:00 Active Up ad Faiza [RC] ASDIRECTED Care 12/05/16 01:39 Active Urinary Catheter Assessment [RC] ASDIRECTED Care 12/05/16 09:19 Active Vital Signs [RC] Q1H Care 12/05/16 01:39 Active Peripheral IV Insertion Adult [OM.PC] Routine Oth 12/05/16 01:39 Ordered Sequential Compression Device [OM.PC] Per Unit Routine Oth 12/05/16 01:44 Ordered Resuscitation Status Routine Resus Stat 12/05/16 01:39 Ordered Assessment/Plan Comment:: a/p suicide attempt with presumably diclofenac and Soma Severe alteration in the mental status, obtunded Bipolar d/o Osteogenesa imperfecta Rheumatoid arthritis Paln : will admit patient to iCU observation Patient to be transferred to acute psychiatric inpatient when medically stable she will needs 1 to one watch , currently she barely can open eyes when called her name. will old all her medications, PPI iv , neurochecks q 2h dvt prof :holly
== END 2016-12-05 12:40 ==
LOC: MW.ED 22:32 → MW.ICU 23:55
PROVIDERS: ADMIT Internal Medicine; ATTEND Internal Medicine
DX: T50.901A Poisoning by unspecified drugs, medicaments and biological substances, accidental (unintentional), initial encounter (principal); R41.82 Altered mental status, unspecified; S30.0XXA Contusion of lower back and pelvis, initial encounter; M06.9 Rheumatoid arthritis, unspecified; F31.9 Bipolar disorder, unspecified; E66.9 Obesity, unspecified; Z68.30 Body mass index [BMI] 30.0-30.9, adult; M81.0 Age-related osteoporosis without current pathological fracture; Z79.899 Other long term (current) drug therapy; Z87.891 Personal history of nicotine dependence; Z88.6 Allergy status to analgesic agent; Z88.8 Allergy status to other drugs, medicaments and biological substances; W18.49XA Other slipping, tripping and stumbling without falling, initial encounter
CPT/HCPCS: 36415; 36600; 51703; 70450; 80053; 80305; 81001; 81025; 82553; 82803; 84484; 85025; 85610; 93005; 96361; 96374; 96375; 99285; A9270; C9113; G0378; G0480; J2060; J7040; 71010

== ENCOUNTER 2017-08-26 10:40 | Day surgery (SDC) | payer OTHER ==
[~2017-08-26 10:40] MED LIST: Lactated Ringers 1,000 ML IV SCH
[2017-08-26] MEDS ORDERED: Lidocaine 2% 5 ML SDV ONE (11:33)
--- NOTE | 2017-08-26 11:47 | PCM.PREANE ---
Preanesthetic Assessment - Anesthesia/Transfusion/Family Hx Anesthesia History: Prior Anesthesia Without Reaction Family History of Anesthesia Reaction: No Transfusion History: No Prior Transfusion(s) Intubation History: Unknown - Review of Systems General: No Symptoms Pulmonary: No Symptoms Cardiovascular: No Symptoms Gastrointestinal: Abdominal Pain, Hematochezia, Other (h/o colon polyp) Neurological: No Symptoms Other: Reports: None - Physical Assessment NPO Status Date: 08/24/17 NPO Status Time: 21:00 O2 Sat by Pulse Oximetry: 97 Respiratory Rate: 12 Vital Signs: Last Vital Signs Temp 36.1 C 08/26/17 10:45 Pulse 107 H 08/26/17 10:45 Resp 12 08/26/17 10:45 BP 132/97 H 08/26/17 10:45 Pulse Ox 97 08/26/17 10:45 Height: 1.63 m Weight: 96.162 kg ASA Class: 2 Mental Status: Alert & Oriented x3 Airway Class: Mallampati = 2 Dentition: Reports: Normal Dentition Thyro-Mental Finger Breadths: 3 Mouth Opening Finger Breadths: 3 ROM/Head Extension: Limited/Partial Lungs: Clear to Auscultation, Normal Respiratory Effort Cardiovascular: Regular Rate, Regular Rhythm - Allergies Allergies/Adverse Reactions: Allergies Allergy/AdvReac Type Severity Reaction Status Date / Time clarithromycin [From Biaxin] Allergy Difficulty Verified 12/04/16 09:38 Breathing morphine Allergy Rash Verified 12/04/16 09:38 - Blood Blood Available: No - Anesthesia Plan Pre-Op Medication Ordered: None - Acknowledgements Anesthesia Type Planned: MAC Pt an Appropriate Candidate for the Planned Anesthesia: Yes Alternatives and Risks of Anesthesia Discussed w Pt/Guardian: Yes Pt/Guardian Understands and Agrees with Anesthesia Plan: Yes PreAnesthesia Questionnaire HEENT History: Reports: Other (See Below) Other HEENT History: wears glasses/contacts Cardiovascular History: Reports: None Respiratory History: Reports: Asthma, Other (See Below) Other Respiratory History: asthma "yrs ago" Gastrointestinal History: Reports: Colon Polyp, GERD Genitourinary History: Reports: None 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: Musculoskeletal History: Reports: Back Pain, Chronic, Fibromyalgia, Neck Pain, Chronic, Osteoporosis, RA, Other (See Below) (chronic pain syndrome) Neurological History: Reports: None Psychiatric History: Reports: Anxiety, Bipolar, Depression Endocrine/Metabolic History: Reports: Obesity/BMI 30+, Osteopenia Hematologic History: Reports: None Immunologic History: Reports: None Oncologic (Cancer) History: Reports: None Dermatologic History: Reports: None - Infectious Disease History Infectious Disease History: Reports: Chicken Pox - Past Surgical History Head Surgeries/Procedures: Reports: None GI Surgical History: Reports: Appendectomy, Cholecystectomy, Colonoscopy (x2, last one 5 years ago) Female Surgical History: Reports: Section (x2), Hysterectomy Neurological Surgical History: Reports: C-Spine Other Neurological Surgeries/Procedures: hx neck surgery Musculoskeletal Surgical History: Reports: Other (See Below) Other Musculoskeletal Surgeries/Procedures:: L4-L5 laminectomy - SUBSTANCE USE Smoking Status *Q: Former Smoker Tobacco Use Within Last Twelve Months: Cigarettes Second Hand Smoke Exposure: No Days Per Week of Alcohol Use: 0 Recreational Drug Use History: No - HOME MEDS Home Medications: Home Meds Ziprasidone HCl [Geodon] 20 mg PO BID 11/06/16 [History] lamoTRIgine [Lamictal] 200 mg PO BID 11/06/16 [History] traZODone 100 mg PO BEDTIME PRN 11/06/16 [History] Hydroxychloroquine [Plaquenil] 200 mg PO BID 12/05/16 [History] LORazepam 1 mg PO BID PRN 12/05/16 [History] Prednisone [IMW: predniSONE] 20 mg PO WEEKLY 12/05/16 [History] Cyclobenzaprine [Flexeril] 10 mg PO ASDIRECTED PRN 08/19/17 [History] DULoxetine HCl [Cymbalta] 90 mg PO DAILY 08/19/17 [History] Zolpidem Tartrate 5 mg PO BEDTIME PRN 08/19/17 [History] - CURRENT (IN HOUSE) MEDS Current Meds: Current Medications Lactated Ringer's (Ringers, Lactated) 1,000 mls @ 125 mls/hr IV ASDIRECTED ADWOA Last Admin: 08/26/17 11:04 Dose: 125 mls/hr Discontinued Medications Lidocaine (Xylocaine-Mpf 2%) Confirm Administered Dose 5 ml .ROUTE .STK-MED ONE Stop: 08/26/17 11:34
[2017-08-26] MEDS ORDERED: Propofol 200 MG/20 ML SDV ONE ×2 (12:55→14:19)
[2017-08-26] MEDS ORDERED: fentaNYL 100 MCG/2 ML SDV ONE (12:56)
--- NOTE | 2017-08-26 14:36 | PCM.OPNOTE ---
- General Post-Op/Procedure Note Date of Surgery/Procedure: 08/26/17 Operative Procedure(s): egd w bx. and colonoscopy random bx Findings: see dict [id number] Pre Op Diagnosis: abd pain, and BRBPR Post-Op Diagnosis: gerd and hemorrhoid Anesthesia Technique: Moderate Sedation Primary Surgeon: Leonel Juarez Pathology: sent Complications: None Condition: Good
--- NOTE | 2017-08-26 14:53 | PCM.OPNOTE ---
- General Post-Op/Procedure Note Date of Surgery/Procedure: 08/26/17 Operative Procedure(s): egd w bx Findings: see dict [id number] Pre Op Diagnosis: gerd and abd pain Post-Op Diagnosis: esophagitis Anesthesia Technique: Moderate Sedation Primary Surgeon: Leonel Juarez Complications: None Condition: Good Free Text/Narrative:: Intake & Output 08/25/17 08/26/17 08/26/17 22:59 06:59 14:59 Intake Total 800 Balance 800
[2017-08-26 15:08] VITALS: BP 111/85
--- NOTE | 2017-08-26 21:18 | OR ---
SURGEON: Leonel Juarez MD DATE OF PROCEDURE: 08/26/2017 PREOPERATIVE DIAGNOSES: 1. Abdominal pain. 2. Bright red blood per rectum. POSTOPERATIVE DIAGNOSES: Esophagogastroduodenoscopy diagnosis of an acid reflux and a colonoscopy diagnosis is hemorrhoids. PROCEDURES PERFORMED: Esophagogastroduodenoscopy with biopsy and colonoscopy. EGD FINDINGS: 1. The patient is easily sedated with ZIPPER CUTTER and Diprivan. The patient is soundly snoring. 2. The patient's oropharynx and proximal esophagus are free of disease and GE junction at 40 shows moderate salmon color change consistent with moderate acid reflux. No ulcer or bleeding observed, and stomach rugae is normal in appearance. There is some minimal bile, but no food or blood observed. Antrum is little bit inflamed and with several red spots of petechiae and hemorrhagic spots. There is no bleeding per se, but a little bit red, very small, 5-6 of them. Duodenum was grossly normal in appearance. 3. The scope retrieved back to the stomach. On retroflexed look of the stomach, there is no hiatal hernia. Biopsy done at antrum, body, GE junction at 40, and sucked out the air. PROCEDURE IN DETAIL: The patient was taken to the endoscopy room, and with the ZIPPER CUTTER, Diprivan was administered. A well-lubricated EGD scope was gently inserted through the oropharynx, down the esophagus, passing through the gastroesophageal junction, into the stomach. The mucosa was examined upon the passage. Any etiology will be noted. Once in the stomach, we continued to advance to the distal antrum, passed through the pylorus into the second portion of the duodenum. Again, the mucosa was examined for any abnormality and etiology. The scope was then retrieved back to the stomach and then retroflexed to look at the fundus of the stomach. If a biopsy was indicated, we will biopsy the antrum, body, and gastroesophageal junction. The air will be sucked out while the scope is retrieved to reduce the patient's discomfort. The patient tolerated the procedure well. There were no intraoperative complications. Dr. Juarez was present through the whole procedure. Prior to surgery, a time-out had been called, the patient identified, procedure identified and antibiotic administered. COLONOSCOPY FINDINGS: 1. The patient was easily sedated with ZIPPER CUTTER and Diprivan. The patient is soundly snoring. 2. Bowel prep is average to above average, moderate liquid stool. No semi- formed stool. 3. Colon was rather straight forward, cecum indicated by ileocecal fold, one- to-one indentation, and light immittance. Mucosa examined upon the scope pulling out. The patient does not have polyp, mass, growth, inflammation, stricture, ulceration, bleeding, AV malformation, diverticulosis, none of those. The patient had internal hemorrhoids and also external hemorrhoid. Random biopsy done. The patient will benefit from a repeat colonoscopy 10 years from today or if clinically indicated otherwise. PROCEDURE IN DETAIL: The patient was taken to the endoscopy room. A time out was called, patient identified, and procedure identified. Diprivan was then administrated. Patient went from awake to sleep, hearing doctor talking or door closing is normal. Perineum inspection and digital examination were then performed. A well- lubricated colonoscope was gently inserted through the rectum, advanced past the rectosigmoid junction, the descending colon, splenic flexure, transverse colon, hepatic flexure, ascending colon, arrived to the cecum. Cecum was identified as dictated in the finding. Then the scope was carefully withdrawn while attention was paid to the mucosal surface for any abnormality. Air will be sucked out during the scope withdrawal. At the rectum, retroflexed to examine any rectal diseases, fistula or hemorrhoids. Patient tolerated procedure well. There were no intraoperative complications, and Dr. Juarez was present throughout the whole procedure. DEMETRIA / LEONILA /[id number] BENNIE
== END 2017-08-26 15:00 | disposition home or self-care (01) ==
LOC: MW.SDS 10:40
PROVIDERS: ATTEND Surgery
DX: K21.0 Gastro-esophageal reflux disease with esophagitis (principal); K64.8 Other hemorrhoids; K64.4 Residual hemorrhoidal skin tags; R23.3 Spontaneous ecchymoses; G89.4 Chronic pain syndrome; F31.81 Bipolar II disorder; F41.9 Anxiety disorder, unspecified; E03.9 Hypothyroidism, unspecified; Z88.1 Allergy status to other antibiotic agents; Z88.8 Allergy status to other drugs, medicaments and biological substances; Z79.899 Other long term (current) drug therapy; Z90.49 Acquired absence of other specified parts of digestive tract; Z90.710 Acquired absence of both cervix and uterus; F17.200 Nicotine dependence, unspecified, uncomplicated
CPT/HCPCS: 43239; 45380; 88305; 88312; J3010; J7120; 00740; J2704

== ENCOUNTER 2017-08-29 23:14 | Emergency (ER) | payer OTHER ==
--- NOTE | 2017-08-29 23:34 | EDM.PDOC ---
ED HPI GENERAL MEDICAL PROBLEM - General Chief Complaint: Laceration Stated Complaint: LACERATION/KNEE Time Seen by Provider: 08/29/17 23:19 - History of Present Illness INITIAL COMMENTS - FREE TEXT/NARRATIVE: 47 year old fm with history of Osteogenesis Imperfecta and RA presents to ED alongside due to fall. Patient is currently intoxicated and provides some history. Fall occurred 1 hour ago outside a bar. Patient does not recall exactly how she fell but she ended up with a laceration on her right kneecap. She also has some pain and tenderness along her left lower ribs. She denies any loc or hitting her head during the fall. She has not had any confusion, nausea or vomiting. She admits to having 4-5 drinks or liquor over the past 6 hours and last sip was 45 minutes ago. She denies any history of alcohol use disorder and states she drinks 1x month. She does not recall when her last tetanus shot was. right knee Pain Score (Numeric/FACES): 10 - Related Data Allergies Allergy/AdvReac Type Severity Reaction Status Date / Time clarithromycin [From Biaxin] Allergy Difficulty Verified 08/29/17 23:21 Breathing morphine Allergy Rash Verified 08/29/17 23:21 Home Meds: Home Meds Ziprasidone HCl [Geodon] 20 mg PO BID 11/06/16 [History] lamoTRIgine [Lamictal] 200 mg PO BID 11/06/16 [History] traZODone 100 mg PO BEDTIME PRN 11/06/16 [History] Hydroxychloroquine [Plaquenil] 200 mg PO BID 12/05/16 [History] LORazepam 1 mg PO BID PRN 12/05/16 [History] Prednisone [IMW: predniSONE] 20 mg PO WEEKLY 12/05/16 [History] Cyclobenzaprine [Flexeril] 10 mg PO ASDIRECTED PRN 08/19/17 [History] DULoxetine HCl [Cymbalta] 90 mg PO DAILY 08/19/17 [History] Zolpidem Tartrate 5 mg PO BEDTIME PRN 08/19/17 [History] Hydrocodone/Acetaminophen [Arlington 5-325 Tablet] 1 each PO Q6H PRN #28 tablet 11/15 [Rx] Past Medical History HEENT History: Reports: Other (See Below) Other HEENT History: wears glasses/contacts Cardiovascular History: Reports: None Respiratory History: Reports: Asthma, Other (See Below) Other Respiratory History: asthma "yrs ago" Gastrointestinal History: Reports: Colon Polyp, GERD Genitourinary History: Reports: None 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: Musculoskeletal History: Reports: Back Pain, Chronic, Fibromyalgia, Neck Pain, Chronic, Osteoporosis, RA, Other (See Below) (chronic pain syndrome) Neurological History: Reports: None Psychiatric History: Reports: Anxiety, Bipolar, Depression Endocrine/Metabolic History: Reports: Obesity/BMI 30+, Osteopenia Hematologic History: Reports: None Immunologic History: Reports: None Oncologic (Cancer) History: Reports: None Dermatologic History: Reports: None - Infectious Disease History Infectious Disease History: Reports: Chicken Pox - Past Surgical History Head Surgeries/Procedures: Reports: None GI Surgical History: Reports: Appendectomy, Cholecystectomy, Colonoscopy (x2, last one 5 years ago) Female Surgical History: Reports: Section (x2), Hysterectomy Neurological Surgical History: Reports: C-Spine Other Neurological Surgeries/Procedures: hx neck surgery Musculoskeletal Surgical History: Reports: Other (See Below) Other Musculoskeletal Surgeries/Procedures:: L4-L5 laminectomy Social & Family History - Family History Family Medical History: Noncontributory - Tobacco Use Smoking Status *Q: Former Smoker Years of Tobacco use: 15 Used Tobacco, but Quit: Yes Month Tobacco Last Used: quit 1 week ago Second Hand Smoke Exposure: No - Caffeine Use Caffeine Use: Reports: None - Alcohol Use Days Per Week of Alcohol Use: 0 - Recreational Drug Use Recreational Drug Use: No ED ROS GENERAL - Review of Systems Review Of Systems: See Below Constitutional: Reports: No Symptoms HEENT: Reports: No Symptoms Respiratory: Reports: No Symptoms Cardiovascular: Reports: No Symptoms Endocrine: Reports: No Symptoms GI/Abdominal: Reports: No Symptoms : Reports: No Symptoms Musculoskeletal: Reports: Leg Pain, Other (rib pain) Skin: Reports: No Symptoms Neurological: Reports: No Symptoms Psychiatric: Reports: No Symptoms Hematologic/Lymphatic: Reports: No Symptoms Immunologic: Reports: No Symptoms ED EXAM, GENERAL - Physical Exam Exam: See Below Exam Limited By: Intoxication General Appearance: Mild Distress Eye Exam: Bilateral Eye: EOMI, PERRL Ears: Normal External Exam, Hearing Grossly Normal Nose: Normal Inspection, Normal Mucosa, No Blood Throat/Mouth: Normal Inspection, Normal Oropharynx, Normal Voice, No Airway Compromise Head: Atraumatic, Normocephalic Neck: Normal Inspection, Supple, Non-Tender, Full Range of Motion Respiratory/Chest: No Respiratory Distress, Lungs Clear, Normal Breath Sounds, No Accessory Muscle Use Cardiovascular: Normal Peripheral Pulses, Regular Rate, Rhythm Peripheral Pulses: 2+: Dorsalis Pedis (L), Dorsalis Pedis (R) GI/Abdominal: Normal Bowel Sounds, Soft, Non-Tender, No Distention Back Exam: Normal Inspection. No: CVA Tenderness (L), CVA Tenderness (R) Extremities: Normal Capillary Refill, Other (Right Knee: V shaped lacertion present on right anterior knee cap, approx. 6-7 cm in length. Pain with flexion past 100 degress, minimal edema, negative leonidas, negative gayatri, negative anterior/posterior drawer sign) Neurological: Normal Reflexes, Other (patient alert and oriented to person, place and time ) Skin Exam: Other (v shaped lacertion present on right anterior knee cap, approx. 6-7 cm in length) Course - Vital Signs Last Recorded V/S: Last Vital Signs Temp 36.7 C 08/29/17 23:21 Pulse 109 H 08/29/17 23:21 Resp 18 08/29/17 23:21 BP 111/72 08/29/17 23:21 Pulse Ox 96 08/29/17 23:21 - Orders/Labs/Meds Orders: Active Orders 24 hr Category Date Time Status Vaccines to be Administered [RC] PER UNIT ROUTINE Care 08/29/17 23:38 Active C-Spine [Cervical Spine 1V] [CR] Stat Exams 08/30/17 01:22 Taken Chest 1V Frontal [CR] Stat Exams 08/30/17 01:23 Taken Knee 3V Rt [CR] Stat Exams 08/29/17 23:30 Taken Pelvis 1V or 2V [CR] Stat Exams 08/30/17 01:22 Taken Ribs 3V wo Chest Bi [CR] Stat Exams 08/30/17 00:05 Taken Meds: Medications Discontinued Medications Generic Name Dose Route Start Last Admin Trade Name Freq PRN Reason Stop Dose Admin Hydrocodone Bitart/Acetaminophen 1 tab 08/30/17 01:51 [place] 325-5 Mg PO 08/30/17 01:52 ONETIME ONE Diphtheria/Tetanus/Acell Pertussis 0.5 ml 08/29/17 23:36 08/30/17 01:30 Adacel IM 08/29/17 23:37 0.5 ml .ONCE ONE Administration Ketorolac Tromethamine 60 mg 08/30/17 00:15 08/30/17 00:19 Toradol IM 08/30/17 00:16 60 mg ONETIME ONE Administration Lidocaine HCl 20 ml 08/30/17 00:57 08/30/17 01:30 Xylocaine 1% INJECT 08/30/17 00:58 20 ml ONETIME ONE Administration Lidocaine HCl 20 ml 08/30/17 00:52 08/30/17 01:30 Xylocaine 1% INJECT 08/30/17 00:53 Not Given ONETIME ONE Departure - Departure Time of Disposition: 02:47 Disposition: Home, Self-Care 01 Condition: Good Clinical Impression: Ribs, multiple fractures, Laceration of knee, Fall, Alcohol intoxication - Discharge Information Prescriptions: Hydrocodone/Acetaminophen [Arlington 5-325 Tablet] 1 each PO Q6H PRN #28 tablet PRN Reason: Pain Instructions: Laceration Care, Adult, [id number], Rib Fracture, [id number] Referrals: PCP,None [Primary Care Provider] - Anjali Castaneda MD [Resident] - Forms: ED Department Discharge Additional Instructions: The following information is given to patients seen in the emergency department who are being discharged to home. This information is to outline your options for follow-up care. We provide all patients seen in our emergency department with a follow-up referral. The need for follow-up, as well as the timing and circumstances, are variable depending upon the specifics of your emergency department visit. If you don't have a primary care physician on staff, we will provide you with a referral. We always advise you to contact your personal physician following an emergency department visit to inform them of the circumstance of the visit and for follow-up with them and/or the need for any referrals to a consulting specialist. The emergency department will also refer you to a specialist when appropriate. This referral assures that you have the opportunity for followup care with a specialist. All of these measure are taken in an effort to provide you with optimal care, which includes your followup. Under all circumstances we always encourage you to contact your private physician who remains a resource for coordinating your care. When calling for followup care, please make the office aware that this follow-up is from your recent emergency room visit. If for any reason you are refused follow-up, please contact the [facility] emergency department at and asked to speak to the emergency department charge nurse. - Problem List Review Problem List Initiated/Reviewed/Updated: Yes - My Orders Last 24 Hours: My Active Orders 08/29/17 23:30 Knee 3V Rt [CR] Stat 08/29/17 23:38 Vaccines to be Administered [RC] PER UNIT ROUTINE 08/30/17 00:05 Ribs 3V wo Chest Bi [CR] Stat 08/30/17 01:22 C-Spine [Cervical Spine 1V] [CR] Stat Pelvis 1V or 2V [CR] Stat 08/30/17 01:23 Chest 1V Frontal [CR] Stat - Assessment/Plan Last 24 Hours: My Active Orders 08/29/17 23:30 Knee 3V Rt [CR] Stat 08/29/17 23:38 Vaccines to be Administered [RC] PER UNIT ROUTINE 08/30/17 00:05 Ribs 3V wo Chest Bi [CR] Stat 08/30/17 01:22 C-Spine [Cervical Spine 1V] [CR] Stat Pelvis 1V or 2V [CR] Stat 08/30/17 01:23 Chest 1V Frontal [CR] Stat Plan: Diagnostics: XR Right Knee, XR BL Ribs, XR Chest, XR BL Pelvis, XR C-Spine Therapeutics: Ketorolac 60 mg IM single dose, Arlington 5-325 mg PO Single dose, Tdap Vaccine Assessment: 1. Fall 2. Laceration, Right Knee 3. Multiple Rib Fractures, Left 8th & Left 9th Ribs 4. Acute Alcohol Intoxication Plan: 1. Laceration Repair - Risks, benefits and alternatives were discussed with patient. Patient agreed with plan. Consent was obtained. Sterile technique with sharifa were used. Lidocaine 1% was used for local anesthesia. Patient tolerated the procedure. No complications. Wound was cleaned and gauze dressing was applied. 2. Prescribed Arlington 5-325 [id number] PRN pain, 7 days, 28 tabs 3. recommended OTC NSAIDS 4. f/u with PCP within 7 days
[2017-08-29] MEDS ORDERED: Diphtheria,Pertussis(Acell),Tetanus Vaccine 0.5 ML Syringe IM ONE (23:36)
[2017-08-30] MEDS ORDERED: Ketorolac 60 MG/2 ML SDV IM ONE (00:15)
[2017-08-30] MEDS ORDERED: Lidocaine 1% 20 ML MDV INJECT ONE ×2 (00:52→00:57)
[2017-08-30] MEDS ORDERED: Acetaminophen/HYDROcodone 325-5 MG Tab PO ONE (01:51)
[2017-08-30 03:01] VITALS: BP 120/74
--- NOTE | 2017-09-01 11:57 | CR ---
EXAM DATE: 08/29/17 PATIENT'S AGE: 47 Patient: RAMIRO LARKIN Facility: [place], [place] Site . Site : 1970 Study: XRay Knee [id number]/1/2017 11:53:29 PM Ordering Physician: Doctor Marie Final Report: INDICATION: fall, lac TECHNIQUE: Three views of the right knee COMPARISON: None FINDINGS: Bones: No fractures or bone lesions. Joint spaces: Unremarkable. Soft tissues: soft laceration along the prepatellar soft tissues with no radiopaque foreign body appreciated. 2 dystrophic calcifications noted laterally. IMPRESSION: soft laceration along the prepatellar soft tissues with no radiopaque foreign body appreciated. No acute bony abnormality. Dictated by Hudson Sanot MD @ 08/30/2017 12:17:05 AM Dictated by: Hudson Santo MD @ 08/30/2017 00:17:13 (Electronic Signature) Report Signed by Proxy. BENNIE
--- NOTE | 2017-09-01 13:16 | CR ---
EXAM DATE: 08/29/17 PATIENT'S AGE: 47 Patient: RAMIRO LRAKIN Facility: [place], [place] Site . Site : 1970 Study: XRay Chest Left [id number]/2/2017 12:43:30 AM Ordering Physician: Doctor Marie Final Report: Indication: Injury. Technique: Two views of the left ribs Comparison: None available Findings: Acute fractures of the left posterolateral 8th and 9th ribs. An apparent small focus of cortical lucency in the lateral 7th rib is at least partially related to overlying soft tissue. Cholecystectomy clips. Impression: Left 8th and 9th rib fractures. Dictated by Gregorio Hinojosa MD @ 08/30/2017 1:06:50 AM Dictated by: Gregorio Hinojosa MD @ 08/30/2017 01:07:04 (Electronic Signature) Patient: RAMIRO LARKIN Facility: [place], [place] Site . Site : 1970 Study: XRay Chest [id number]/2/2017 2:34:35 AM Ordering Physician: Doctor Marie Final Report: INDICATION: Trauma TECHNIQUE: Chest 1 view. COMPARISON: 12/04/2016 FINDINGS: Cardiovascular and mediastinum: Heart size and vasculature are normal in caliber and appearance. Mediastinum is within normal limits. Lungs and pleural space: Lungs are clear. No sign of infiltrate or mass. No sign of pleural effusion. No pneumothorax. Bones and soft tissues: Displaced fractures left 8th and 9th ribs. IMPRESSION: Displaced fractures left 8th and 9th ribs. Dictated by Qamar Neely MD @ Aug 30 2017 2:35AM (Electronic Signature) BENNIE
--- NOTE | 2017-09-01 13:17 | CR ---
EXAM DATE: 08/29/17 PATIENT'S AGE: 47 Patient: RAMIRO LARKIN Facility: [place], [place] Site . Site : 1970 Study: XRay Spine Cervical [id number]/2/2017 2:35:38 AM Ordering Physician: Doctor Marie Final Report: INDICATION: Trauma TECHNIQUE: Cervical spine two views, lateral view and swimmer`s view. COMPARISON: None FINDINGS: C7 and T1 are not well seen. Bones: Alignment is normal. No fractures or significant bone lesions. Anterior plate and screws fixation of C6 and C7. Joints: Disc spaces and facets are unremarkable. Soft tissues: Unremarkable. IMPRESSION: Unremarkable cervical spine. C7 and T1 are not well seen. Dictated by Qamar Neely MD @ 08/30/2017 2:40:24 AM Dictated by: Qamar Neely MD @ 08/30/2017 02:40:36 (Electronic Signature) Report Signed by Proxy. BENNIE
--- NOTE | 2017-09-01 13:18 | CR ---
EXAM DATE: 08/29/17 PATIENT'S AGE: 47 Patient: RAMIRO LARKIN Facility: [place], [place] Site . Site : 1970 Study: XRay Pelvis [id number]/2/2017 2:36:02 AM Ordering Physician: Doctor Marie Final Report: INDICATION: Fall TECHNIQUE: AP pelvis COMPARISON: None FINDINGS: Bones: Alignment is normal. No fractures or bone lesions. Joint spaces: Unremarkable. Soft tissues: Unremarkable. IMPRESSION: No evidence of acute trauma. Dictated by Qamar Neely MD @ 08/30/2017 2:41:44 AM Dictated by: Qamar Neely MD @ 08/30/2017 02:41:49 (Electronic Signature) Report Signed by Proxy. [facility]ari
== END 2017-08-30 02:58 | disposition home or self-care (01) ==
LOC: MW.ED 23:14
DX: S22.42XA Multiple fractures of ribs, left side, initial encounter for closed fracture (principal); S81.011A Laceration without foreign body, right knee, initial encounter; F10.120 Alcohol abuse with intoxication, uncomplicated; F31.9 Bipolar disorder, unspecified; Z88.1 Allergy status to other antibiotic agents; Z88.5 Allergy status to narcotic agent; Z79.899 Other long term (current) drug therapy; Z23 Encounter for immunization; W19.XXXA Unspecified fall, initial encounter
CPT/HCPCS: 12002; 71101; 72020; 72170; 73562; 90471; 90715; 96372; 99283; A9270; J1885; 71010; 71110

== ENCOUNTER 2017-09-05 08:28 | Emergency (ER) | payer OTHER ==
[2017-09-05 09:15] VITALS: BP 156/78
== END 2017-09-05 09:15 | disposition home or self-care (01) ==
LOC: MW.ED 08:28
DX: Z53.21 Procedure and treatment not carried out due to patient leaving prior to being seen by health care provider (principal)